=== PATIENT | male | born 1995 | race Caucasian/White ===

== ENCOUNTER 2018-02-20 04:31 | Emergency (ER) | payer OTHER ==
[2018-02-20] MEDS ORDERED: IBUPROFEN 600 MG TAB PO ONE ×2 (04:52→04:55)
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
[2018-02-20 05:41] VITALS: BP 125/65
== END 2018-02-20 05:44 | disposition home or self-care (01) ==
PROC: 0RSKXZZ Reposition Left Shoulder Joint, External Approach (ICD-10-PCS; principal; 2018-02-20)
DX: S43.005A Unspecified dislocation of left shoulder joint, initial encounter (principal); F17.200 Nicotine dependence, unspecified, uncomplicated; S00.81XA Abrasion of other part of head, initial encounter; Y04.0XXA Assault by unarmed brawl or fight, initial encounter; Y99.8 Other external cause status; Y93.89 Activity, other specified